=== PATIENT | female | born 1965 | race Caucasian/White ===

== ENCOUNTER 2017-05-03 08:06 | Outpatient (CLI) | payer OTHER ==
[2017-05-03 08:47] LABS: eGFR (African) > 60; eGFR (Non-African) > 60
== END 2017-05-03 08:08 ==
LOC: LAB 08:06
PROVIDERS: ATTEND Obstetrics & Gynecology
DX: E03.9 Hypothyroidism, unspecified (principal); E66.09 Other obesity due to excess calories
CPT/HCPCS: 36415; 80053; 80061; 82043; 83036; 84443

== ENCOUNTER 2019-02-22 08:27 | Outpatient (CLI) | payer OTHER ==
[2019-02-22 09:09] LABS: A1C 5.1 % (<5.7)
[2019-02-22 09:41] LABS: BASOPHILS % 0.7 % (0.0-1.5); SEGMENTED NEUTROPHILS % 63 % (39-79)
[2019-02-22 10:13] LABS: eGFR (Non-African) > 60
[2019-02-22 10:14] LABS: HDL 75 mg/dL (>40)
== END 2019-02-22 08:32 ==
LOC: LAB 08:27
PROVIDERS: ATTEND Obstetrics & Gynecology
DX: E03.8 Other specified hypothyroidism (principal); E11.21 Type 2 diabetes mellitus with diabetic nephropathy
CPT/HCPCS: 36415; 80053; 80061; 82728; 83036; 84439; 84443; 84481; 85025